=== PATIENT | male | born 1985 | race Caucasian/White ===

== ENCOUNTER 2024-02-06 15:48 | Outpatient (OUT) | payer SELFPAY ==
[2024-02-06 17:07] LABS: Alanine Aminotransferase 39 U/L (16-63); Albumin Globulin Ratio 1.1; Albumin Level 3.5 g/dL (3.4-5.0); Alkaline Phosphatase 87 U/L (46-116); Anion Gap 7.2; Aspartate Amino Transferase 27 U/L (15-37); BUN Creatinine Ratio 11.1; Bilirubin Total 0.4 mg/dL (0.2-1.0); Calcium 8.8 mg/dL (8.5-10.1); Carbon Dioxide 29.1 mmol/L (21.0-32.0); Chloride 101 mmol/L (98-107); Estimated GFR (African America >60 (>=60); Estimated GFR (Non-African Ame >60 (>=60); Globulin 3.2 g/dL; Glucose 96 mg/dL (74-106); Potassium 4.3 mmol/L (3.5-5.1); Sodium 133 mmol/L (136-145); Total Protein 6.7 g/dL (6.4-8.2)
[2024-02-08 08:08] LABS: Estradiol 72.7 pg/mL (7.6-42.6); Testosterone 592 ng/dL (264-916)
== END 2024-02-06 15:49 | disposition home or self-care (01) ==
PROVIDERS: PCP Family Medicine
DX: F64.0 Transsexualism (principal)
CPT/HCPCS: 36415; 80053; 82670; 84403

== ENCOUNTER 2025-03-15 17:45 | Emergency (ER) | payer OTHER, SELFPAY ==
[2025-03-15 17:59] VITALS: BP 159/88; PULSE 107; TEMP 36.8; O2SAT 99; BMI 35.4
--- NOTE | 2025-03-15 18:59 | CT_ITS ---
The [address] [address] Patient Name: AGUSTÍN MATHEW MRN: [id number] date: 1985 Sex: M Assigned Patient Location: ER Current Patient Location: ER Accession/Order Number: [id number] Exam Date: 03/15/2025 19:20 Report Date: 03/15/2025 19:35 At the request of: FRANKIE BROWNE Procedure: CT cervical spine wo con CT Cervical Spine withoutcontrast TECHNIQUE: Axial imaging with 2-D and 3-D reconstruction. The CT exam was performed using one or more the following dose reduction techniques: Automated exposure control, adjustment of the MA and/or Kv according to patient size, or use of the iterative reconstruction technique. COMPARISON: Plain film imaging 07/10/2020 HISTORY: Neck pain. Head injury. POST SURGERY CHANGES: C5-6 fusion. No hardware complication. BONY ALIGNMENT: Similar Straightening with mild degenerative listhesis. BONY SPINAL CANAL: Patent central bony canal FRACTURE: None BONY LESIONS: None SOFT TISSUES: Unremarkable DEGENERATIVE CHANGES: None LUNG APICES: Unremarkable ADDITIONAL FINDINGS: CT/CT cervical spine wo con IMPRESSION: No hardware complication. Similar Degenerative change. Straightening of cervical lordosis. No acute displaced fracture. Impression dictated by: Owen Mo M.D. 03/15/2025 7:35 PM Dictation Location: [employer] Electronically authenticated by: [id number] Y Date: 03/15/2025 19:35
[2025-03-15] MEDS: KETOROLAC TROMETHAMINE 30 MG/ML VIAL IM (20:02)
--- NOTE | 2025-03-15 20:15 | ED.GENADUL1 ---
HPI HPI - General Adult General Chief complaint: Neck Pain/Injury Stated complaint: NECK PAIN/ HIT TOP OF STAIRS FEW DAYS AGO Time Seen by Provider: 03/15/25 18:49 Source: patient Mode of arrival: walk-in Limitations: no limitations History of Present Illness HPI narrative: Patient is a 39-year-old male that presents to the emergency department with complaints of neck pain for months now. The patient has seen his primary care physician for this and is taking diclofenac for the pain without relief. Patient states he did hit his head when he was changing the cat litter box under the stairs that caused a axial compression. Patient denies fall or LOC. Patient has a history of 2 cervical fusions at C5-6, 1 anterior and 1 posterior. This was approximately 10 years ago now. Patient denies any upper extremity weakness, numbness, or tingling, or gait instability. Related Data Previous Rx's ?Medication ?Instructions ?Recorded cyclobenzaprine 5 mg tablet 5 mg PO HS PRN muscle spasm #14 03/15/25 tabs methylprednisolone 4 mg tablets in 4 mg PO DAILY #21 ea 03/15/25 a dose pack (Medrol (Paulo)) Allergies Allergy/AdvReac Type Severity Reaction Status Date / Time acetaminophen (From Percocet) Allergy Severe Hives Verified 03/15/25 17:59 oxycodone (From Percocet) Allergy Severe Hives Verified 03/15/25 17:59 Opioid HPI Opioid Management Most Recent Opioid Data: Last Pain Scale 8 03/15/25, 17:59 PFSH PFSH Social History Little interest or pleasure in doing things: not at all Feeling down, depressed, or hopeless: not at all Exam Narrative Exam Narrative: General: No distress, age-appropriate Skin: Warm, dry, no pallor. No rash. Head: Normocephalic, atraumatic. Neck: Supple, left anterior transverse scar, midline posterior scar. Midline cervical tenderness. Tenderness to the left sternocleidomastoid. Eye: Pupils are equal, round and EOMI. No scleral icterus. Ears, Nose, Mouth, and Throat: No nasal mucosal hypertrophy. Oral mucosa is moist, no posterior oropharynx erythema, uvula is mid-line Cardiovascular: Regular Rate and Rhythm without murmur, gallop or rub. Respiratory: No accessory muscle use or respiratory distress. Musculoskeletal: Full ROM of all extremities, no calf or popliteal tenderness. 5/5 strength bilateral upper extremities. Sensation intact distally bilateral upper extremities. Neurological: A&O x4. No cranial nerve dysfunction observed. No truncal ataxia. Moves all extremities. Sensation intact. Psychiatric: Cooperative and interactive. Normal mood and affect. Constitutional Vital Signs, click to edit/add: Last Vital Signs Temp 98.3 F 03/15/25 17:59 Pulse 107 H 03/15/25 17:59 Resp 20 03/15/25 17:59 BP 159/88 H 03/15/25 17:59 Pulse Ox 99 03/15/25 17:59 Course Vital Signs Vital signs: Vital Signs Temperature 98.3 F 03/15/25 17:59 Pulse Rate 107 H 03/15/25 17:59 Respiratory Rate 03/15/25 17:59 Blood Pressure 159/88 H 03/15/25 17:59 Pulse Oximetry 99 03/15/25 17:59 Temperature 98.3 F 03/15/25 17:59 Pulse Rate 107 H 03/15/25 17:59 Respiratory Rate 03/15/25 17:59 Blood Pressure 159/88 H 03/15/25 17:59 Pulse Oximetry 99 03/15/25 17:59 Medical Decision Making MDM Narrative Medical decision making narrative: This is a 39-year-old male that presented to the emergency department with complaints of 2 days of increased neck pain after hitting his head on the bottom of a staircase while attempting to stand up while changing jaimie litter. There was no LOC, no fall. Patient has been having neck pain for few months now that was exacerbated by this event. Patient denies any radiating pain, upper extremity weakness, numbness, or paresthesias. There has been no gait instability. On arrival patient is in no distress, laying on ED cart. Vitals are stable. Patient is afebrile. Will get a CT cervical spine and give patient IM Toradol [address] cervical spine reviewed by myself and radiological read notes no hardware malfunction at C5-6 with previous anterior/posterior fusion. There are degenerative changes above the fusion most notable at C4-5. No fracture or apparent spinal stenosis. I did update patient and patient's mother with results of the CT scan. Toradol has helped somewhat with the pain. Plan will be to discharge with prescriptions for Medrol Dosepak and Flexeril 5 mg as needed at night for muscle spasm. We did discuss follow-up with patient's surgeon given the pain has been going on for a while prior to the head strike. Patient states that since has been so long we will probably need a referral from PCP. Plan will be for discharge on medications for pain and follow-up with PCP for referral to neurosurgery/spine surgery. Patient's vitals were stable during his ED course and he remained neurologically intact. Patient was discharged home in good condition. Differential Diagnosis Differential Diagnosis: Cervical hardware malfunction, cervical fracture, MSK pain Imaging Data CT Cervical Spine: Attestation: I have reviewed the pertinent imaging results. Radiologist's impression: ITS Impressions Cervical Spine CT 03/15/25 18:59 IMPRESSION: No hardware complication. Similar Degenerative change. Straightening of cervical lordosis. No acute displaced fracture. Impression dictated by: Owen Mo M.D. 03/15/2025 7:35 PM Dictation Location: [facility] [employer] Electronically authenticated by: [id number] Y Date: 03/15/2025 19:35 Discharge Plan Discharge Chief Complaint: Neck Pain/Injury Clinical Impression: Strain of neck muscle Patient Disposition: Home, Self-Care Time of Disposition Decision: 20:29 Condition: Good Mode of Transportation: Private Vehicle Prescriptions / Home Meds: New methylprednisolone [Medrol (Paulo)] 4 mg tablets,dose pack 4 mg PO DAILY Qty: 21 0RF cyclobenzaprine 5 mg tablet 5 mg PO HS PRN (Reason: muscle spasm) Qty: 14 0RF Print Language: Turkmen Instructions: Cervical Strain (DC) Referrals: William King MD [Primary Care Provider, Family Practice] - 1 week Discharge Date/Time: 03/15/25 21:11
== END 2025-03-15 21:11 | disposition home or self-care (01) ==
PROVIDERS: Emergency Provider Internal Medicine; PCP Family Medicine
DX: S16.1XXA Strain of muscle, fascia and tendon at neck level, initial encounter (principal); W22.09XA Striking against other stationary object, initial encounter; Z98.1 Arthrodesis status
CPT/HCPCS: 72125; 76376; 96372; 99284; J1885